=== PATIENT | male | born 1995 | race Caucasian/White ===

== ENCOUNTER 2023-03-27 11:11 | Emergency (ER) | payer OTHER, MEDICAID ==
[~2023-03-27] VITALS: Ht 182.9 cm; Wt 95.3 kg
[2023-03-27 11:34] VITALS: BP 142/81; PULSE 117; RESP 15; TEMP 101.5; O2SAT 98
[2023-03-27] MEDS ORDERED: ACETAMINOPHEN EXTRA STRENGTH 500 MG TAB PO ONE (12:35)
[2023-03-27] MEDS ORDERED: ONDANSETRON 4 MG ODT PO ONE (12:35)
[2023-03-27 13:15] LABS: FLU A ANTIGEN negative (NEGATIVE); FLU B ANTIGEN negative (NEGATIVE)
[2023-03-27] MEDS ORDERED: DEXAMETHASONE 10 MG/ML VIAL IM ONE (13:30)
[2023-03-27] MEDS ORDERED: IBUP-2213 PO (13:32)
[2023-03-27] MEDS ORDERED: AMOX1TAB8 PO (13:32)
[2023-03-27 14:05] VITALS: BP 142/81; PULSE 117; RESP 15; TEMP 101.5; O2SAT 98
== END 2023-03-27 14:05 | disposition home or self-care (01) ==
LOC: MED 11:11
DX: J02.0 Streptococcal pharyngitis (principal); Z20.822 Contact with and (suspected) exposure to COVID-19; Z79.1 Long term (current) use of non-steroidal anti-inflammatories (NSAID); Z79.2 Long term (current) use of antibiotics
CPT/HCPCS: 87081; 87426; 87804; 99283; J1100; Q0162